=== PATIENT | female | born 1950 | race Caucasian/White ===

== ENCOUNTER 2022-05-30 15:54 | Inpatient (IN) | payer MEDICARE ==
[2022-05-30 17:41] VITALS: BMI 31.4
[2022-05-30] MEDS: Temazepam 15 MG CAP PO SCH (21:03)
[2022-05-30] MEDS ORDERED: hydrALAZINE 20 MG/ML VIAL SLOW IVP PRN (21:44)
[2022-05-30] MEDS ORDERED: Ondansetron PF 4 MG/2 ML Vial IVP PRN (21:57)
[2022-05-30] MEDS ORDERED: hydrOXYzine 25 MG TAB PO SCH (22:00)
[2022-05-30] MEDS ORDERED: Atorvastatin Calcium 40 MG TAB PO SCH (22:15)
[2022-05-30] MEDS ORDERED: Amlodipine 10 MG TAB PO SCH (22:15)
[2022-05-31] MEDS ORDERED: hydrALAZINE 20 MG/ML VIAL SLOW IVP SCH ×2 (02:00→12:15)
[2022-05-31 06:40] LABS: #Basophils 0.1 thou/uL (0.0-0.2); #Eosinphils 0.3 thou/uL (0.0-0.7); #Lymphocytes 1.2 thou/uL (1.20-3.40); #Monocytes 0.9 thou/uL (0.11-0.59); #Neutrophils 11.4 thou/uL (1.40-6.50); %Basophils 0.7 % (0.0-1.0); %Eosinophils 1.9 % (0.0-10.0); %Lymphocytes 8.5 % (21.0-51.0); %Monocytes 6.6 % (0.0-10.0); %Neutrophils 82.2 % (42.0-75.0); Hemoglobin 15.1 g/dL (12.0-16.0); Mean Corpuscular Hemoglobin 32.6 pg (27.0-31.0); Mean Corpuscular Volume 98.7 fL (78.0-98.0); Mean Platelet Volume 8.5 fL (7.4-10.4); Platelet Count 244 thou/uL (130-400); Red Blood Cell (RBC) Count 4.63 mill/uL (4.20-5.40); White Blood Cell (WBC) Count 13.9 thou/uL (4.8-10.8)
[2022-05-31 07:01] LABS: ALT (SGPT) 18 U/L (8-55); AST (SGOT) 26 U/L (5-34); Albumin 4.5 g/dL (3.4-4.8); Alkaline Phosphatase 56 U/L (40-110); Anion Gap 17 mmol/L (10-20); BUN (Urea Nitrogen) 15 mg/dL (9.8-20.1); Bilirubin, Total 0.8 mg/dL (0.2-1.2); Calc. Creatinine Clearance 98 mL/min (70-130); Calcium 10.6 mg/dL (7.8-10.44); Carbon Dioxide 28 mmol/L (23-31); Chloride 98 mmol/L (98-107); Estimated GFR 80; Globulin 3.1 g/dL (2.4-3.5); Glucose 97 mg/dL (83-110); Potassium 3.5 mmol/L (3.5-5.1); Protein, Total 7.6 g/dL (5.8-8.1); Sodium 139 mmol/L (136-145)
[2022-05-31] MEDS: Losartan 25 MG TAB PO SCH (08:56)
[2022-05-31] MEDS: Thyroid 60 MG TAB PO SCH (08:56)
[2022-05-31] MEDS: Pantoprazole 40 MG VIAL IVP SCH (08:56)
[2022-05-31] MEDS: Amlodipine 10 MG TAB PO SCH (08:56)
[2022-05-31] MEDS: Zinc Sulfate 220 MG CAP PO SCH (08:57)
[2022-05-31] MEDS: Multivitamin W/ Minerals 1 TAB PO SCH (08:57)
[2022-05-31] MEDS: hydrOXYzine 25 MG TAB PO PRN (20:45)
[2022-05-31] MEDS: Atorvastatin Calcium 40 MG TAB PO SCH (20:45)
[2022-05-31] MEDS: Temazepam 15 MG CAP PO SCH (20:45)
[2022-06-01 05:56] LABS: #Basophils 0.1 thou/uL (0.0-0.2); #Eosinphils 0.1 thou/uL (0.0-0.7); #Lymphocytes 0.8 thou/uL (1.20-3.40); #Monocytes 0.9 thou/uL (0.11-0.59); #Neutrophils 10.2 thou/uL (1.40-6.50); %Basophils 0.5 % (0.0-1.0); %Eosinophils 1.2 % (0.0-10.0); %Lymphocytes 6.5 % (21.0-51.0); %Monocytes 7.2 % (0.0-10.0); %Neutrophils 84.6 % (42.0-75.0); Mean Corpuscular HGB CONC 33.7 g/dL (32.0-36.0); Mean Corpuscular Hemoglobin 32.6 pg (27.0-31.0); Mean Corpuscular Volume 96.7 fL (78.0-98.0); Mean Platelet Volume 8.2 fL (7.4-10.4); Platelet Count 233 thou/uL (130-400); Red Blood Cell (RBC) Count 4.59 mill/uL (4.20-5.40); White Blood Cell (WBC) Count 12.1 thou/uL (4.8-10.8)
[2022-06-01 06:12] LABS: Anion Gap 17 mmol/L (10-20); BUN (Urea Nitrogen) 19 mg/dL (9.8-20.1); Calc. Creatinine Clearance 99 mL/min (70-130); Calcium 10.2 mg/dL (7.8-10.44); Carbon Dioxide 26 mmol/L (23-31); Chloride 97 mmol/L (98-107); Estimated GFR 81; Glucose 103 mg/dL (83-110); Potassium 3.4 mmol/L (3.5-5.1); Sodium 137 mmol/L (136-145)
[2022-06-01] MEDS: Pantoprazole 40 MG VIAL IVP SCH (08:47)
[2022-06-01] MEDS: Losartan 25 MG TAB PO SCH (08:47)
[2022-06-01] MEDS: Amlodipine 10 MG TAB PO SCH (08:47)
[2022-06-01] MEDS: Multivitamin W/ Minerals 1 TAB PO SCH (08:47)
[2022-06-01] MEDS: Zinc Sulfate 220 MG CAP PO SCH (08:47)
[2022-06-01] MEDS: Thyroid 60 MG TAB PO SCH (08:47)
[2022-06-01] MEDS ORDERED: Losartan 25 MG TAB PO SCH (14:30)
[2022-06-01] MEDS: hydrOXYzine 25 MG TAB PO PRN (20:40)
[2022-06-01] MEDS: Atorvastatin Calcium 40 MG TAB PO SCH (20:40)
[2022-06-01] MEDS: Temazepam 15 MG CAP PO SCH (20:40)
[2022-06-02 05:59] LABS: #Eosinphils 0.4 thou/uL (0.0-0.7); #Lymphocytes 1.2 thou/uL (1.20-3.40); #Neutrophils 9.8 thou/uL (1.40-6.50); %Basophils 0.2 % (0.0-1.0); %Eosinophils 3.2 % (0.0-10.0); %Lymphocytes 9.5 % (21.0-51.0); %Neutrophils 79.1 % (42.0-75.0); Hemoglobin 14.1 g/dL (12.0-16.0); Mean Corpuscular HGB CONC 33.7 g/dL (32.0-36.0); Mean Corpuscular Hemoglobin 32.6 pg (27.0-31.0); Mean Corpuscular Volume 96.6 fL (78.0-98.0); Mean Platelet Volume 8.2 fL (7.4-10.4); Platelet Count 247 thou/uL (130-400); RBC Distribution Width 11.9 % (11.5-14.5); Red Blood Cell (RBC) Count 4.32 mill/uL (4.20-5.40); White Blood Cell (WBC) Count 12.4 thou/uL (4.8-10.8)
[2022-06-02 06:25] LABS: Anion Gap 13 mmol/L (10-20); BUN (Urea Nitrogen) 17 mg/dL (9.8-20.1); Calc. Creatinine Clearance 111 mL/min (70-130); Calcium 9.7 mg/dL (7.8-10.44); Carbon Dioxide 28 mmol/L (23-31); Chloride 97 mmol/L (98-107); Estimated GFR 92; Glucose 107 mg/dL (83-110); Potassium 3.1 mmol/L (3.5-5.1); Sodium 135 mmol/L (136-145)
[2022-06-02] MEDS: Thyroid 60 MG TAB PO SCH (09:27)
[2022-06-02] MEDS: Losartan 25 MG TAB PO SCH (09:28)
[2022-06-02] MEDS: Multivitamin W/ Minerals 1 TAB PO SCH (09:28)
[2022-06-02] MEDS: Zinc Sulfate 220 MG CAP PO SCH (09:28)
[2022-06-02] MEDS: Amlodipine 10 MG TAB PO SCH (09:28)
[2022-06-02] MEDS: Pantoprazole 40 MG VIAL IVP SCH (09:29)
[2022-06-02] MEDS: Atorvastatin Calcium 40 MG TAB PO SCH (20:46)
[2022-06-02] MEDS: hydrOXYzine 25 MG TAB PO PRN (20:48)
[2022-06-03] MEDS: Multivitamin W/ Minerals 1 TAB PO SCH (08:35)
[2022-06-03] MEDS: Losartan 25 MG TAB PO SCH (08:35)
[2022-06-03] MEDS: Pantoprazole 40 MG VIAL IVP SCH (08:35)
[2022-06-03] MEDS: Amlodipine 10 MG TAB PO SCH (08:35)
[2022-06-03] MEDS: Thyroid 60 MG TAB PO SCH (08:36)
[2022-06-03] MEDS: Zinc Sulfate 220 MG CAP PO SCH (08:36)
[2022-06-03] MEDS: Atorvastatin Calcium 40 MG TAB PO SCH (20:29)
[2022-06-03] MEDS: hydrOXYzine 25 MG TAB PO PRN (21:03)
[2022-06-04] MEDS: Pantoprazole 40 MG VIAL IVP SCH (10:07)
[2022-06-04] MEDS: Multivitamin W/ Minerals 1 TAB PO SCH (10:07)
[2022-06-04] MEDS: Losartan 25 MG TAB PO SCH (10:08)
[2022-06-04] MEDS: Thyroid 60 MG TAB PO SCH (10:08)
[2022-06-04] MEDS: Zinc Sulfate 220 MG CAP PO SCH (10:08)
[2022-06-04] MEDS: Amlodipine 10 MG TAB PO SCH (10:18)
[2022-06-04 16:28] VITALS: BP 130/83; TEMP 98.3
== END 2022-06-04 17:58 | disposition home health service (06) | DRG 917 ==
LOC: NEURO 16:02 → OBSVTOIN 06-01 10:24 → T4-B 06-02 18:16
PROVIDERS: ADMIT Internal Medicine; ATTEND Internal Medicine
DX: T42.4X1A Poisoning by benzodiazepines, accidental (unintentional), initial encounter (principal); G92.8 Other toxic encephalopathy; N17.9 Acute kidney failure, unspecified; F03.90 Unspecified dementia, unspecified severity, without behavioral disturbance, psychotic disturbance, mood disturbance, and anxiety; Z20.822 Contact with and (suspected) exposure to COVID-19; E03.9 Hypothyroidism, unspecified; M19.90 Unspecified osteoarthritis, unspecified site; I10 Essential (primary) hypertension; E11.9 Type 2 diabetes mellitus without complications; E86.0 Dehydration; R29.6 Repeated falls; E87.6 Hypokalemia; T40.421A Poisoning by tramadol, accidental (unintentional), initial encounter; I16.0 Hypertensive urgency; Z88.1 Allergy status to other antibiotic agents; Z88.0 Allergy status to penicillin; Z88.2 Allergy status to sulfonamides; Z79.899 Other long term (current) drug therapy; Z79.82 Long term (current) use of aspirin; Z79.890 Hormone replacement therapy; Z98.84 Bariatric surgery status; Z98.1 Arthrodesis status; Z91.81 History of falling
CPT/HCPCS: 36415; 70551; 80048; 80053; 80061; 84443; 85025; 95712; 95819; 95957; 96374; 96375; 96376; C9113; G0378; J0360; U0003; U0005